=== PATIENT | female | born 1990 | race Caucasian/White ===

== ENCOUNTER → 2019-02-09 14:36 | Outpatient (CLI) | payer MEDICAID ==
[~2019-02-09 14:36] MED LIST: GLUCOPHAGE500 MG PO; PEPCID40 MG PO; PRENAVITE1 TAB PO
[2019-02-15 11:46] VITALS: BMI 36.4
== END | disposition home or self-care (01) ==
LOC: D.LDO 14:36
PROVIDERS: ATTEND Student in an Organized Health Care Education/Training Program
DX: O24.419 Gestational diabetes mellitus in pregnancy, unspecified control (principal); Z3A.00 Weeks of gestation of pregnancy not specified

== ENCOUNTER → 2019-02-11 15:59 | Outpatient (CLI) | payer MEDICAID ==
[2019-02-15 11:46] VITALS: BMI 36.4
== END | disposition home or self-care (01) ==
LOC: D.LDO 15:59
PROVIDERS: ATTEND Student in an Organized Health Care Education/Training Program
DX: O24.419 Gestational diabetes mellitus in pregnancy, unspecified control (principal)

== ENCOUNTER 2019-02-15 11:32 | Inpatient (IN) | payer MEDICAID ==
[~2019-02-15] VITALS: Ht 167.6 cm; Wt 102.1 kg
[2019-02-15 11:46] VITALS: BP 125/67; Ht 167.6 cm; Wt 102.1 kg
[2019-02-15 12:07] LABS: HEMATOCRIT 35.2 % (36.0-48.0); HEMOGLOBIN 11.5 g/dL (12-16); MCH 27.3 pg (26.0-34.0); MCHC 32.7 g/dL (31.0-37.0); MCV 83.4 fL (80.0-100.0); RBC 4.22 10x6/uL (4.00-5.40); RDW 13.6 % (11.5-14.5); WBC 11.7 10x3/uL (4.8-10.8)
--- NOTE | 2019-02-16 05:34 | NUR ---
CONVERSING WITH FAMILY AND EATING MEAL BROUGHT TO HER BY FAMILY. DENIES PAIN AND NEEDS AT THIS TIME. REQUESTS INFANTS BATH BE DELAYED, NBN NOTIFIED. BED IN LOW POSITION WITH UPPER SIDE RAILS RAISED X2. CALL LIGHT AND PHONE WITHIN REACH. WILL CONTINUE TO MONITOR. FAMILY MEMBERS REMAIN AT BEDSIDE.
--- NOTE | 2019-02-16 07:09 | NUR ---
REPORT TO DAY SHIFT.
--- NOTE | 2019-02-16 07:45 | NUR ---
TO ROOM FOR AM ASSESSMENT, PT IS RECIEVING ASSISTANCE WITH AT THIS TIME.
[2019-02-16 08:10] LABS: RAPID PLASMA REAGIN Non Reactive (Non Reactive)
--- NOTE | 2019-02-16 08:19 | NUR ---
CainAdriana 02[birth year] S: Patient states this is her first baby. latched immediately for her first feeding and she was unsure if was getting anything at the breast because she couldn't see anything. O: Patient lying in bed, family member sleeping on sofa. CLC walked in room with nursing staff with infant for feeding. sleeping in crib. Asked patient how did go for first feeding, any concerns with , or sore nipples? Explained breastmilk composition and how her body will make milk, supply and demand. Educated patient takes time, practice, and patience. Explain normal feeding patterns which including observing feeding cues and practice responsive feeding (feed on demand). Explained infant feeding cues, benefits of skin to skin, positions, how to verify infant is latched correctly. Infant was placed skin to skin to help promote led . Infant is sleepy and stimulated to wake to attempt . Infant attempts to suck but stops and does this several times. is brought to nursery for doctor assessment by nursery nurse and will return to room for feeding. Encouraged patient it is normal for to need to be waken to feed. Just give time, she is doing a great job and this is normal behavior. A: Patient first baby, learning how to . P: Continue to support during hospital visit. PRATIBHA Garces
[2019-02-16 08:35] VITALS: BP 111/63
--- NOTE | 2019-02-16 09:00 | NUR ---
AM ASSESSMENT COMPLETED CHARTED ON FLOWSHEET. PT RATES CRAMPING AT 2/10. FUNDUS FIRM AT U/1 WITH LIGHT BLEEDING TO TONI PAD, SHE DENIES CLOTS WITH VOIDS. VERBALIZES UNDERSTANDING OF TONI CARE AND HAS NO QUESTIONS. REQUEST MADE FOR TOWELS, NO OTHER NEEDS AT THIS TIME. CALL LIGHT WITH IN HER REACH. INFANT IN CRIB AT BEDSIDE AND SIG OTHER PRESENT.
--- NOTE | 2019-02-16 09:30 | NUR ---
Pt complaining of saline lock burning, tender to touch. Orders checked. Explained to pt that could be removed but there is always possiblilty would need to be restarted depending on am lab results. Pt states understanding and request saline lock be removed. This is completed at this time with cath noted to be intact. Kimberly pads and mesh briefs placed in bathroom. Also placed towels for when she is ready to shower, request that she let nurse know so that bed linens can be changed.
--- NOTE | 2019-02-16 10:20 | NUR ---
PAIN REASSESSMENT COMPLETED, RATES PAIN/CRAMPING AT 0/10.
--- NOTE | 2019-02-16 12:08 | NUR ---
LARGE CUP OF ICE PER REQUEST. DENIES PAIN OR DISCOMFORT. INFANT IN CRIB AT BEDSIDE. CALL LIGHT IN REACH.
--- NOTE | 2019-02-16 15:45 | NUR ---
PT RATES PAIN AT 0/10, PT DENIES TYLENOL AT THIS TIME. VISITING WITH FRIENDS/FAMILY WITH IN ROOM. CALL LIGHT IN REACH.
--- NOTE | 2019-02-16 17:30 | NUR ---
REASSURED PT THAT YES SHE WOULD BE MOVED TO POST ROOM QUICK POSSIBLE. PT STATES SHE IS GOING TO TAKE A SHOWER NOW. SIG OTHER IN ROOM WITH INFANT.
--- NOTE | 2019-02-16 19:05 | NUR ---
AMBULATORY TO ROOM 1257 FOR CONTINUED PP CARE. STEADY GAIT NOTED. REQUEST PAIN MEDICATION FOR ABD CRAMPING AND BACK DISCOMFORT, "MAYBE 2-3/10, IT'S NOT BAD." ORIENTED TO ROOM, CALL LIGHT USE, AND BR. VERBALIZES UNDERSTANDING. FAMILY IN ROOM. PT CONVERSING WITH FAMILY, PLACED IN MOM'S ARMS. SRUPX2. CALL LIGHT AND PHONE PLACED WITHIN REACH.
--- NOTE | 2019-02-16 19:30 | NUR ---
PM ASSESSMENT COMPLETED CHARTED ON FLOWSHEET. PT RATES CRAMPING IN BACK AND LOWER ABDOMEN AT 4-10, SEE EMAR FOR PAIN WASHING MACHINE LOADER AND PULLER. FUNDUS FIRM AND MIDLINE WITH SCANT BLOOD NOTED TO TONI PAD. PT DENIES CLOTS WHEN VOIDING OR VOIDING ISSUES. PT STATED SHE HAD FINISHED HER DINNER TRAY. FAMILY IN ROOM HOLDING . NO DISTRESS NOTED. PT DENIES ALL OTHER NEEDS. SRUPX2, CALL LIGHT AND PHONE WITHIN REACH.
[2019-02-16 19:55] VITALS: BP 113/69
--- NOTE | 2019-02-16 20:25 | NUR ---
PAIN REASSESSMENT COMPLETED BY THIS RN, PT RATES CRAMPING IN BACK AND ABDOMEN AT 2/10. PT STATED PAIN MEDICATION EFFECTIVE. DENIES ALL OTHER NEEDS AT THIS TIME. SRUPX2, CALL LIGHT AND PHONE WITHIN REACH.
--- NOTE | 2019-02-16 21:54 | NUR ---
PT UP TO BR PER SELF. SMALL AMOUNT OF BLOOD NOTED TO TONI PAD WITH QUARTER SIZE CLOT NOTED. PT DENIES PAIN AND ALL OTHER NEEDS AT THIS TIME. WILL CONTINUE TO MONITOR AND ASSESS. SRUPX2, CALL LIGHT AND PHONE WITHIN REACH.
--- NOTE | 2019-02-16 22:20 | NUR ---
THIS NURSE CALLED TO ROOM. ICE PROVIDED AT PT REQUEST. FAMILY AT BEDSIDE, INFANT IN CRIB. NO DISTRESS NOTED. SRUPX2, CALL LIGHT AND PHONE WITHIN REACH.
--- NOTE | 2019-02-17 00:30 | NUR ---
pt sitting up in bed with family at bedside. nursery nurse in room tending to infant at this time. pt denies pain and all other needs at this time. srupx2, call light and phone within reach.
--- NOTE | 2019-02-17 02:30 | NUR ---
rounding completed by this rn. pt sleeping in bed with sleeping in crib at bedside. respirations even and unlabored, no distress noted. srupx2, call light and phone within reach.
--- NOTE | 2019-02-17 04:06 | NUR ---
rounding completed by this rn. pt sleeping in bed with family at bedside. infant in nursery at this time. respirations even and unlabored, no distress noted. srupx2, call light and phone within reach.
--- NOTE | 2019-02-17 06:31 | NUR ---
rounding completed by this rn. pt rates pain at 2/10 in perineal area. see emar for multimedia assistant. pt in bed holding infant. family at bedside. pt denies bleeding or clots during night. pt denies all other needs at this time. srupx2, call light and phone within reach.
[2019-02-17 07:00] VITALS: BP 111/63
--- NOTE | 2019-02-17 07:00 | NUR ---
ASSESSMENT PER FLOW SHEET, VS OBTAINED, FF, ML, U/2, PT REPORTS LITE BLEEDING WITH 1 SMALL CLOT LAST NIGHT, PT REPORTS FLATUS, NO BM AND VOIDING WITH NO DIFFICULTY, RATES TONI PAIN 2-3/10, INFORMED PT THAT I WILL ADM PAIN MEDS WHEN DUE, PT VERBALIZES UNDERSTANDING, DENIES NEEDS AT THIS TIME, IN OPEN CRIB CART AND FAMILY AT BEDSIDE
[2019-02-17 07:22] LABS: BASOPHILS 0.2 % (0-2); EOSINOPHILS 1.8 % (0-7); HEMATOCRIT 32.7 % (36.0-48.0); HEMOGLOBIN 10.5 g/dL (12-16); IMMATURE GRANULOCYTES 0.5 % (0-5); LYMPHOCYTES 23.8 % (15-50); MCH 26.9 pg (26.0-34.0); MCHC 32.1 g/dL (31.0-37.0); MCV 83.6 fL (80.0-100.0); MEAN PLATELET VOLUME 11.3 fL (7.4-10.4); MONOCYTES 8.5 % (2-11); NEUTROPHILS 65.2 % (40-80); PLATELET COUNT 260 10x3/uL (130-400); RBC 3.91 10x6/uL (4.00-5.40); RDW 14.1 % (11.5-14.5); WBC 12.3 10x3/uL (4.8-10.8)
--- NOTE | 2019-02-17 08:30 | NUR ---
PT SITTING UP IN BED EATING BREAKFAST, DENIES NEEDS AT THIS TIME, INFANT IN OPEN CRIB CART AND FAMILY AT BEDSIDE
--- NOTE | 2019-02-17 08:41 | NUR ---
Adriana Cain [birth year] S: Patient states baby has been doing good with . She is using the nipple shield on one breast and the baby latches great with it. Denies concerns or questions at this time. Thinks she will be here again tonight due to infant not being able to maintain temperature. O: Patient sitting up in bed eating breakfast, infant in nursery, and family members in room. How are things going with , how can I help? Praised for . Encouraged to continue to practice responsive feeding when shows feeding cues. Provided tips on different positions. Ask for help as needed with questions or concerns regarding . A: Patient expresses positive feedback with . P: Continue to support exclusively during hospital visit. Jessica Méndez, CLC
--- NOTE | 2019-02-17 09:37 | NUR ---
PT SITTING UP IN BED VISITING WITH FAMILY AND FRIENDS, DENIES NEEDS OR PAIN AT THIS TIME
--- NOTE | 2019-02-17 10:13 | NUR ---
PT INFANT AT THIS TIME, RATES TONI PAIN 06/28, INFORMED PT THAT I WILL ADM PAIN MED WHEN DUE, PT STATES "THAT'S FINE, I'M NOT TO BAD RIGHT NOW", PT REQUESTED AND SERVED CUP OF ICE AND FRESH H20, FAMILY AT BEDSIDE
--- NOTE | 2019-02-17 11:28 | NUR ---
DR QUEVEDO IN ROOM TALKING TO PT REGARDING INFANT
[2019-02-17 11:41] VITALS: BP 105/62
--- NOTE | 2019-02-17 11:41 | NUR ---
PT LAYING IN BED HOLDING , VS OBTAINED, PT PROVIDED INFORMATION ON FLU, TDAP, AND MMR VACCINE, PT VERBALIZES UNDERSTANDING, DENIES NEEDS AT THIS TIME, FOB AT BEDSIDE
--- NOTE | 2019-02-17 12:55 | NUR ---
PT HOLDING INFANT, ADM TORADL AND TYLENOL PER MD ORDERS, SEE EMAR, PT DENIES FURTHER NEEDS, FAMILY AT BEDSIDE
--- NOTE | 2019-02-17 14:02 | NUR ---
PT SITTING UP IN BED, PLAYING ON CELL PHONE, DENIES PAIN, REQUESTED AND SERVED FRESH H20, DENIES FURTHER NEEDS, PT'S MOM HOLDING INFANT
--- NOTE | 2019-02-17 15:30 | NUR ---
PT SITTING UP IN BED VISITING WITH FAMILY AND FRIENDS, IN OPEN CRIB CART AT BEDSIDE, PT DENIES NEEDS OR PAIN AT THIS TIME
--- NOTE | 2019-02-17 16:33 | NUR ---
PT VISITING WITH FAMILY AND FRIENDS, HOLDING , DENIES NEEDS OR PAIN AT THIS TIME
--- NOTE | 2019-02-17 17:19 | NUR ---
PT VISITING WITH FAMILY AND FRIENDS, DENIES NEEDS AT THIS TIME
--- NOTE | 2019-02-17 18:47 | NUR ---
PT VISITING WITH FAMILY AND FRIENDS, ADM TORADOL PER MD ORDERS, SEE EMAR, ASKED PT ABOUT VACCINES, PT REFUSES MMR AND TDAP, ONLY REQUESTS THE FLU VACCINE
--- NOTE | 2019-02-17 19:00 | NUR ---
SHIFT REPORT TO ON COMING SHIFT
[2019-02-17 19:55] VITALS: BP 109/74
--- NOTE | 2019-02-17 19:55 | NUR ---
PM ASSESSMENT COMPLETE CHARTED ON FLOWSHEET. FUNDUS FIRM AND MIDLINE. PT DENIES ANY ISSUES WITH VOIDING, REPORTS LIGHT BLEEDING ON TONI PAD WITH NO CLOTS. PT STATED SHE HAD A BM TODAY WITH NO PROBLEMS. INFANT IN CRIB AT BEDSIDE. FAMILY AT BEDSIDE. PT DENIES PAIN AND ALL OTHER NEEDS AT THIS TIME. SRUPX2, CALL LIGHT AND PHONE WITHIN REACH.
--- NOTE | 2019-02-17 20:30 | NUR ---
PT REPORTS SHOWER AND PERICARE PER SELF. FAMILY IN ROOM WITH IN CRIB. NO DISTRESS NOTED.
--- NOTE | 2019-02-17 21:05 | NUR ---
FLU SHOT ADMIN BY THIS NURSE IN LEFT DELTOID. SEE EMAR.
--- NOTE | 2019-02-17 23:15 | NUR ---
PT IN AWAKE IN BED WATCHING TV. SLEEPING IN CRIB AT BEDSIDE. FAMILY AT BEDSIDE. PT DENIES PAIN AND ALL OTHER NEEDS AT THIS TIME. SRUPX2, CALL LIGHT AND PHONE WITHIN REACH.
--- NOTE | 2019-02-18 01:15 | NUR ---
ROUNDING COMPLETED BY THIS RN. PT C/O CRAMPING IN ABDOMEN 06/28, SEE EMAR FOR TORADOL ADMIN. PANTIES, PAPERTOWELS, AND FRESH ICE WATER PROVIDED AT PT REQUEST. IN NURSERY AT THIS TIME. FAMILY AT BEDSIDE. PT DENIES ALL OTHER NEEDS AT THIS TIME. SRUPX2, CALL LIGHT AND PHONE WITHIN REACH.
--- NOTE | 2019-02-18 03:21 | NUR ---
ROUNDING COMPLETED BY THIS RN. PT SLEEPING WITH INFANT SLEEPING IN CRIB BEDSIDE. RESPIRATIONS EVEN AND UNLABORED, NO DISTRESS NOTED. FAMILY AT BEDSIDE. SRUPX2, CALL LIGHT AND PHONE WITHIN REACH.
--- NOTE | 2019-02-18 05:14 | NUR ---
ROUNDING COMPLETED BY THIS RN. MOTHER AND BABY IN BED AT THIS TIME WITH MOM BREAST FEEDING. FOB AT BEDSIDE. DENIES ALL NEEDS AT THIS TIME. SRUPX2, CALL LIGHT AND PHONE WITHIN REACH.
--- NOTE | 2019-02-18 06:14 | NUR ---
ROUNDING COMPLETED BY THIS RN. PT AND FOB SLEEPING IN BED WITH SLEEPING IN CRIB AT BEDSIDE. RESPIRATIONS EVEN AND UNLABORED, NO DISTRESS NOTED. SRUPX2, CALL LIGHT AND PHONE WITHIN REACH.
--- NOTE | 2019-02-18 07:00 | NUR ---
SBAR HANDOFF RECEIVED FROM Emmanuel HASTINGS RN. PATIENT REMAINS STABLE WITH NO SIGNS OF DISTRESS REPORTED.
[2019-02-18 07:45] VITALS: BP 123/79
--- NOTE | 2019-02-18 07:45 | NUR ---
VSS. SUPINE IN BED WITH EYES CLOSED; RESP REG AND EVEN. S.O. SLEEPING AT BEDSIDE. AWAKENED FOR ASSESSMENT. FUNDUS FIRM AT UMBILICUS. DENIES SATURATION OF PERIPAD IN 1 HR OR PASSAGE OF EGG SIZED BLOOD CLOTS VAGINALLY. BBS = AND CTA. PERINEUM INTACT WITH NO SWELLING NOTED. ALERT AND ORIENTED X 4. ATTENTIVE TO .
--- NOTE | 2019-02-18 07:58 | NUR ---
Adriana Cain [birth year] S: Patient states she continues to use the nipple shield for feeding because she thinks she has flat nipples. She was thinking infant wasn't getting anything while at the but when she came off the breast she could see colostrum on the shield. fed last at 5 something this morning. States she would like help with latching infant for next feeding. O: Patient sitting up in bed, family member awake on sofa, and in crib next to bed sleeping. Asked how are things going with ? How did infant feed last night? Informed patient it is normal to question if infant is getting anything while at the breast because you aren't able to visually see it. Nursed nurse came in room to do assessment. Explained supply and demand and praised for . Patient is doing a great job. Remember takes time, practice, and patience. Informed patient I will come back into the room for next feeding. A: Client would like help with latching for next feeding. P: CLC will return to room to assist with latching. Jessica Méndez, PRATIBHA
--- NOTE | 2019-02-18 09:12 | NUR ---
Adriana Cain [birth year] S: Patient states infant has been feeding only for short periods of time then falls asleep. has been feeding for about 5 minutes then she falls asleep. Patient denies pain or discomfort with usages of double electric pump. O: Patient sitting up in bed attempting to wake infant for feeding. in cradle position next to the left breast, sleeping. CLC showed patient how to turn infant for feeding to make sure is tummy to tummy. Encouraged to stimulate to attempt to wake feeding. CLC attempts to wake infant, remains asleep. Spoke with patient about pumping to help with stimulation with her milk. CLC brought an electric pump in room for patient usages. Showed how to connect parts, how to use, and explained how to clean. Recommended patient pump both breast for 15 minutes every 2-3 hour in the day and 3-4 hours at night. It is normal not to see much when pumping at first. The perez is stimulation to help with establishing your supply. Pump as you are able. If you fall asleep just pump when you wake up. Every woman is able to pump different amounts and it is normal. Give pumping time also. If you are unable to keep the provided pumping schedule just pump as you are able. CLC helped patient with usages of electric pump. Patient pumped both breast at 8:55-9:10. No colostrum was seen in bottle after pumping. Encouraged to continue to pump. She may also latch after pumping or before if infant doesn't remain latch when attempting to nurse. CLC will talk with nursery staff and feeding due to not remaining latched for longer than 5 minutes at a time. A: Patient attempting to 35-week old infant. Infant doesn't remain latched longer than 5 minutes due to falling asleep. P: Patient will pump every 2-3 hours in the day, 3-4 hours at night, as able to help with establishing a milk supply. Patient is able to latch infant to the breast. If infant doesn't latch, please pump. If Dr. Gonsalez provides different feeding instructions for , patient is to follow those orders. Jessica Méndez, [facility]
--- NOTE | 2019-02-18 09:45 | NUR ---
UP AND ABOUT IN ROOM CARING FOR . NO COMPLAINTS VOICED. NO DISTRESS NOTED.
--- NOTE | 2019-02-18 11:05 | NUR ---
DISCHARGE INFORMATION REVIEWED. SEE DOCUMENTS IN CHART. VERBALIZES UNDERSTANDING OF ALL INSTRUCTIONS GIVEN. REMAINS STABLE AND READY FOR DISCHARGED.
--- NOTE | 2019-02-18 12:05 | NUR ---
DISCHARGED IN STABLE CONDITION TO SELF CARE IN ROOMING IN ROOM 1221. S.O. ATTENTIVE AT BEDSIDE.
== END 2019-02-18 12:05 | disposition home or self-care (01) | DRG 807 ==
LOC: D.LD 11:32
PROVIDERS: ADMIT Obstetrics & Gynecology; ATTEND Obstetrics & Gynecology
PROC: 0HQ9XZZ Repair Perineum Skin, External Approach (ICD-10-PCS; principal; 2019-02-16)
PROC: 10E0XZZ Delivery of Products of Conception, External Approach (ICD-10-PCS; 2019-02-16)
DX: O60.14X0 Preterm labor third trimester with preterm delivery third trimester, not applicable or unspecified (principal); Z37.0 Single live birth; O70.0 First degree perineal laceration during delivery; Z3A.35 35 weeks gestation of pregnancy